=== PATIENT | female | born 1980 | race Caucasian/White ===

== ENCOUNTER 2023-03-15 09:04 | Emergency (ER) | payer OTHER ==
[~2023-03-15] VITALS: Ht 154.9 cm; Wt 75.7 kg
[2023-03-15 09:11] VITALS: BP 150/93
[2023-03-15] MEDS ORDERED: ONDANSETRON 4 MG/2 ML VIAL IVP ONE (09:25)
[2023-03-15] MEDS ORDERED: PANTOPRAZOLE 40 MG INJ VIAL IVP ONE (09:25)
[2023-03-15] MEDS ORDERED: NACL 0.9% 1,000 ML IV ONE (09:25)
[2023-03-15] MEDS ORDERED: KETOROLAC 15 MG/ML VIAL IVP ONE (09:25)
--- NOTE | 2023-03-15 09:26 | NUR ---
upholstery covers inspector Edel #[id number] used for complete assessment
[2023-03-15 09:51] LABS: BASOPHILS % (AUTO) 0.7 % (0.0-2.0); EOSINOPHILS % (AUTO) 0.3 % (0.0-4.0); HEMATOCRIT 42.5 % (36-48); LYMPHOCYTES # (AUTO) 1.6 K/uL (2.5-16.5); LYMPHOCYTES % (AUTO) 26.4 % (20.5-51.1); MEAN CORPUSCULAR HEMOGLOBIN 29 pg (27-31); MEAN CORPUSCULAR HGB CONC 33 g/dL (33-37); MEAN CORPUSCULAR VOLUME 86.2 fL (80-94); MONOCYTES # (AUTO) 0.4 K/uL (0.8-1.0); MONOCYTES % (AUTO) 6.5 % (1.7-9.3); NEUTROPHILS # (AUTO) 4.1 K/uL (1.8-7.7); NEUTROPHILS % (AUTO) 66.1 % (42.2-75.2); PLATELET COUNT (AUTO) 302 K/uL (140-450); RED BLOOD CELL COUNT(AUTO) 4.94 MIL/uL (4.20-5.40); WHITE BLOOD COUNT (AUTO) 6.2 K/uL (4.8-10.8)
[2023-03-15 10:07] LABS: ALBUMIN 4.3 g/dL (3.4-5.0); CARBON DIOXIDE 24.4 mmol/L (21-32); CREATININE 0.8 mg/dL (0.6-1.3); POTASSIUM 3.4 mmol/L (3.5-5.1); TOTAL BILIRUBIN 0.6 mg/dL (0.0-1.0)
--- NOTE | 2023-03-15 11:58 | NUR ---
11:58 S/W CLARE - REGARDING A [id number] HOLD.
[2023-03-15 12:06] LABS: BILIRUBIN,URINE 1+ (NEGATIVE); BLOOD, URINE 3+ (NEGATIVE); LEUKOCYTE ESTERASE ,URINE NEGATIVE (NEGATIVE); NITRITE, URINE NEGATIVE (NEGATIVE); PH,URINE 5.5 (5.0-9.0); UGLUCOSE NEGATIVE (NEGATIVE)
[2023-03-15 12:10] LABS: APPEARANCE,URINE CLOUDY (CLEAR); COLOR,URINE AMBER (YELLOW)
[2023-03-15 12:14] LABS: ACETAMINOPHEN < 0.5 ug/ml (10-30); SALICYLATE < 2.8 mg/dL (2.8-20.0)
[2023-03-15 12:17] LABS: BARBITURATE, URINE NEGATIVE ng/ml (NEG <=200); BENZODIAZEPINE, URINE NEGATIVE ng/mL (NEG <=200); CANNABINOID, URINE NEGATIVE ng/mL (NEG <=50); COCAINE, URINE NEGATIVE ng/mL (NEG <=300); OPIATE, URINE NEGATIVE ng/mL (NEG <=2000); PHENCYCLIDINE SCREEN,URINE NEGATIVE ng/mL (NEG <=25)
--- NOTE | 2023-03-15 13:01 | NUR ---
Pt to RM #5 to be observed for psych issues. Pt admitted to wanting to hurt herself. Pt placed in bed with family at bedside. Report from RN Sally. [place] Officer Noam at bedside to assess for need for hold. Pt a/o x 4, vss, no ss of acute distress, breathing equal and unlabored, speech clear, pt in view.
[2023-03-15] MEDS ORDERED: cephALEXin 500 MG CAP PO SCH (13:40)
--- NOTE | 2023-03-15 13:45 | NUR ---
ER notified that patient's insurance cannot be verified without social of [employer] number.
--- NOTE | 2023-03-15 15:00 | NUR ---
Pt resting in bed. Family at bedside. Pt is compliant with all requests. Pt has no complaints at this time. Sitter at bedside. Pt breathing equal and unlabored, speech clear, vss, no ss of acute distress.
--- NOTE | 2023-03-15 17:00 | NUR ---
Pt resting at bedside. Pt is requesting her son come drop off some of her belongings. Pt informed that she is not allowed to have belongings on her persons. Previous family member left bedside. Pt resting in bed. No ss of acute distress, breathing equal and unlabored, speech clear, no complaints, pt compliant. Pt still will not give urine and states she is not thirsty.
--- NOTE | 2023-03-15 17:38 | NUR ---
Packet faxed to: Anshul Camposyon Cristino ISIDRO [place] [facility] Serg Begum [place]
[2023-03-15 18:25] VITALS: BP 147/82
--- NOTE | 2023-03-15 19:07 | NUR ---
pt accepted to [facility] [address] [facility] [place] [address] Alberto.
--- NOTE | 2023-03-15 19:30 | NUR ---
Allen latif in EDM - 03/15/23 at 1949 by MED Patient comfortable and safe in bed. Dr. Lundberg aware patient is in pain.
--- NOTE | 2023-03-15 19:30 | NUR ---
Patient awake and comfortable in bed. No signs of distress.
--- NOTE | 2023-03-15 19:49 | NUR ---
called and gave report to Sveta BYRD at [facility] in [place].
--- NOTE | 2023-03-15 20:29 | NUR ---
[facility] NOTIFIED OF PT BEING TRANSFERRED. [phone]
--- NOTE | 2023-03-15 20:44 | NUR ---
[facility] TRANSPORT AT BEDSIDE
--- NOTE | 2023-03-15 20:50 | NUR ---
Patient to be transferred to [facility]. Is being transferred due to higher level of care. Receiving facility has accepting physician and available space. ER physician has signed transfer form. Patient or responsible constitution party has agreed to transfer and signed form. Patient belongings inventoried and will be sent with patient. Copy of nursing notes, lab reports, EKG, Physicians Orders and X-rays to be sent with patient. Report called to Sveta BYRD at receiving facility. [facility] ambulance service has been called for transfer. ETA 60min.
== END 2023-03-15 20:50 ==
LOC: MED 09:04
DX: N39.0 Urinary tract infection, site not specified (principal); Z20.822 Contact with and (suspected) exposure to COVID-19; R11.2 Nausea with vomiting, unspecified; R19.7 Diarrhea, unspecified; R45.851 Suicidal ideations; R63.0 Anorexia; I10 Essential (primary) hypertension; Z79.899 Other long term (current) drug therapy
CPT/HCPCS: 36415; 80053; 80305; 81001; 81025; 83690; 85025; 87086; 87426; 87635; 87804; 96361; 96374; 96375; 99285; C9113; C9803; G0480; G0482; J1885; J2405; J7030